=== PATIENT | male | born 1935 | race Caucasian/White ===

== ENCOUNTER → 2018-03-26 | Outpatient (CLI) | payer OTHER | LOC: FIMAGING 15:25 | PROVIDERS: ATTEND Internal Medicine Rheumatology | DX: M25.552 Pain in left hip (principal) ==

== ENCOUNTER → 2018-06-19 | Outpatient (CLI) | payer OTHER | LOC: FIMAGING 11:25 | PROVIDERS: ATTEND Internal Medicine | DX: Z01.818 Encounter for other preprocedural examination (principal); M51.36 Other intervertebral disc degeneration, lumbar region; M43.16 Spondylolisthesis, lumbar region ==

== ENCOUNTER 2018-08-06 05:40 | Observation (INO) | payer OTHER ==
--- NOTE | 2018-08-05 17:23 | GHP ---
ADMISSION DIAGNOSIS: Benign prostatic hyperplasia with urinary obstruction. This is an 83-year-old gentleman who was referred by Dr. Martino because of urologic evaluation of urinary retention. He has had an AUA score that reveals a quality of life of 5, which is terrible. He has nocturia 3 times per night. He has had recent back surgery and postop urinary retention, and he has had failure of voiding trials. At the present time, with the evaluation and assessment, would recommend a TURP. REVIEW OF SYSTEMS: Negative cardiac, respiratory, GI, and endocrine. PHYSICAL EXAMINATION: VITAL SIGNS: Stable. CHEST: Clear. HEART: Regular rate and rhythm. ABDOMEN: Normal. No organomegaly, rebound, or guarding. LOWER EXTREMITIES: Normal. DIAGNOSTICS: At the present time, he has had a cystoscopy that reveals +4 trabeculation and significant BPH and he is to undergo a transurethral resection of the prostate. Indications, complications, and options have been discussed. Written and verbal consent have been obtained and he will be admitted for the above procedure. /[id number]/MODL MTDD
[2018-08-06] MEDS ORDERED: LR 1,000 ML IV ONE (05:49)
[2018-08-06] MEDS ORDERED: LIDOCAINE 1% 2 ML INJ ID PRN (05:49)
[2018-08-06] MEDS ORDERED: ceFAZolin 2 GM/DEXTROSE 100 ML IV ONE (05:49)
--- NOTE | 2018-08-06 06:49 | PDANEPAE ---
ANE History of Present Illness Cysto TURP ANE Past Medical History - Cardiovascular History Hx Hypertension: Yes Hx Arrhythmias: No Hx Chest Pain: No Hx Coronary Artery / Peripheral Vascular Disease: No Hx CHF / Valvular Disease: No Hx Palpitations: No - Pulmonary History Hx COPD: No Hx Asthma/Reactive Airway Disease: No Hx Recent Upper Respiratory Infection: No Hx Oxygen in Use at Home: No Hx Sleep Apnea: No Sleep Apnea Screening Result - Last Documented: Positive Pulmonary History Comment: CHILDHOOD ASTHMA - Neurologic History Hx Cerebrovascular Accident: Yes Hx Seizures: No Hx Dementia: No Neurologic History Comment: 2015 WITHOUT RESIDUAL ISSUES - Endocrine History Hx Diabetes: No - Renal History Hx Renal Disorders: Yes Renal History Comment: UTI 06/2018. HAS CATHETER IN PLACE. RENAL INSUFFICIENCY - Liver History Hx Hepatic Disorders: No - Neurological & Psychiatric Hx Hx Neurological and Psychiatric Disorders: No - Cancer History Hx Cancer: No - Congenital Disorder History Hx Congenital Disorders: No - GI History Hx Gastrointestinal Disorders: No - Other Health History Other Health History: RECENT LUMBAR LAMINECTOMY. PAMELA LOWER EXT EDEMA. ARTERITIS. INTERMITTENT VERTIGO. CONSTANT TINNITUS. ARTHRITIS - Chronic Pain History Chronic Pain: No - Surgical History Prior Surgeries: LUMBAR LAMINECTOMY 06/26/18 AT [facility]. PAMELA CATARACT. RT KNEE SCOPE. APPENDECTOMY. TONSILLECTOMY ANE Review of Systems Review of Systems: ANE Patient History - Allergies Allergies/Adverse Reactions: Sulfa (Sulfonamide Antibiotics) Allergy (Verified 07/30/18 15:54) Unknown AVACADO Allergy (Uncoded 07/30/18 15:54) GI UPSET - Home Medications Home Medications: Atorvastatin Calcium [Lipitor 10 mg (*)] 10 mg PO DAILY 11/23/15 [Last Taken ] Doxazosin Mesylate 2 mg PO DAILY 11/23/15 [Last Taken 07/05/18] Acetaminophen [Tylenol ES 500 mg (*)] 500 - 1,000 mg PO Q8HRS PRN 07/05/18 [ Last Taken 07/05/18 13:00] Alendronate Sodium [Fosamax 70 MG (*)] 70 mg PO SA@07 07/05/18 [Last Taken 07/04] Cholecalciferol Vit D3 [Vitamin D3 (*)] 1,000 units PO DAILY 07/05/18 [Last Taken Unknown] Furosemide [Lasix 20 MG (*)] 20 mg PO DAILY 07/05/18 [Last Taken 07/05/18] Losartan Potassium [Cozaar 50 mg (*)] 50 mg PO DAILY 07/05/18 [Last Taken ] Potassium Cl [Klor-Con 20 meq (*)] 20 meq PO DAILY 07/05/18 [Last Taken 07/05/18 ] Tamsulosin HCl [Flomax 0.4 MG (*)] 0.4 mg PO DAILY 07/05/18 [Last Taken Unknown] Preservision Areds 2 Softgel DAILY 07/30/18 [Last Taken Unknown] - NPO status NPO Since - Liquids (Date): 08/05/18 NPO Since - Liquids (Time): 21:00 NPO Since - Solids (Date): 08/05/18 NPO Since - Solids (Time): 20:00 - Smoking Hx Smoking Status: Never smoked ANE Labs/Vital Signs - Vital Signs Blood Pressure: 172/99 Heart Rate: 70 Respiratory Rate: 18 O2 Sat (%): 99 Height: 170.18 cm Weight: 73.482 kg ANE Physical Exam - Airway Neck exam: FROM Mallampati Score: Class 2 Mouth exam: normal dental/mouth exam - Pulmonary Pulmonary: clear to auscultation - Cardiovascular Cardiovascular: regular rate and rhythym - ASA Status ASA Status: II ANE Anesthesia Plan Anesthesia Plan: GA w LMA
[2018-08-06] MEDS ORDERED: ACETAMINOPHEN 500 MG TAB PO PRN (06:50)
[2018-08-06] MEDS ORDERED: ALBUTEROL 3 ML DEYVIAL IH PRN (06:50)
[2018-08-06] MEDS ORDERED: ONDANSETRON 4 MG/2 ML VIAL IVP PRN ×2 (06:50→08:27)
[2018-08-06] MEDS ORDERED: DEXAMETHASONE 4 MG/ML VIAL IVP PRN (06:50)
[2018-08-06] MEDS ORDERED: MIDAZOLAM 2 MG/2 ML VIAL IVP ONE (06:50)
[2018-08-06] MEDS ORDERED: fentaNYL 100 MCG/2 ML INJ IVP PRN (06:50)
[2018-08-06] MEDS ORDERED: NALOXONE HCL 0.4 MG/ML INJ IVP PRN (06:50)
[2018-08-06] MEDS ORDERED: SCOPOLAMINE HYDROBROMIDE 1 MG/3 DAYS PATCH TD ONE (06:55)
[2018-08-06] MEDS ORDERED: ONDANSETRON 4 MG/2 ML VIAL ONE (06:58)
[2018-08-06] MEDS ORDERED: PROPOFOL 200 MG/20 ML VIAL ONE (06:58)
[2018-08-06] MEDS ORDERED: LIDOCAINE 2% 2 ML INJ ONE (06:58)
[2018-08-06] MEDS ORDERED: DEXAMETHASONE 4 MG/ML VIAL ONE (06:58)
[2018-08-06] MEDS ORDERED: fentaNYL 100 MCG/2 ML INJ ONE (07:00)
--- NOTE | 2018-08-06 07:01 | PDHPUP ---
History & Physical Update H&P update statement: This history and physical update is based on an assessment of the patient which was completed after admission or registration (within 24 hours), but prior to the surgery/procedure. H&P update: H&P reviewed & patient examined, no change in patient's condition since H&P completed
[2018-08-06] MEDS ORDERED: LIDOCAINE 2% JELLY 20 ML (UROJECT) ONE (07:20)
[2018-08-06] MEDS ORDERED: ONDANSETRON DISINTEGRATING 4 MG TAB PO PRN (08:27)
[2018-08-06] MEDS ORDERED: HYDROCODONE/APAP 5/325 TAB PO PRN (08:27)
[2018-08-06] MEDS ORDERED: OPIUM/BELLADONNA ALKALO SUPP PR PRN (08:27)
--- NOTE | 2018-08-06 08:27 | POSTOPPROG ---
Post Op Note Date of Operation: 08/06/18 (dictated) Surgeon: Devonte Hutchison Anesthesia: LMA Pre-op Diagnosis: bph/retention Procedure: turp Inf/Abcess present in the surg proc area at time of surgery?: No EBL: Minimal Drains: Other (juarez, 70 cc balloon) Specimen(s): sent
--- NOTE | 2018-08-06 08:29 | POSTANESTH ---
Post Anesthetic Evaluation Cardiovascular Status: Normal, Stable Respiratory Status: Normal, Stable Level of Consciousness/Mental Status: Can Participate in Eval, Mildly Sleepy, Arousable Pain Control: Adequate, Prn Tx Ordered Nausea/Vomiting Control: Adequate, Prn Tx Ordered Complications Possibly Related to Anesthesia: None Noted
[2018-08-06] MEDS ORDERED: D5W 1/2 NS 1,000 ML IV SCH (08:30)
[2018-08-06] MEDS ORDERED: ACETAMINOPHEN 500 MG TAB ONE (08:48)
--- NOTE | 2018-08-06 08:51 | GOP ---
DATE OF OPERATION: SURGEON: Devonte Hutchison MD PREOPERATIVE DIAGNOSIS: BPH with urinary retention. POSTOPERATIVE DIAGNOSIS: BPH with urinary retention. PROCEDURE PERFORMED: Transurethral resection of the prostate. FINDINGS: DESCRIPTION OF PROCEDURE: After appropriate general anesthesia, being prepped and draped in normal s terile fashion in dorsal lithotomy position, appropriate time-out, the scope was passed into his blad dar. He had no tumors in the bladder and he had an intravesical lobe with lateral lobar hypertrophy and a TUR with bipolar instrumentation was utilized. Resected the right lateral lobe, right portion of the posterior lobe, the intravesical lobe, left intravesical lobe, lateral lobe, and posterior lob e are resected in a similar fashion. At the end the procedure, bladder was Ellik'd free of all chips and clots. Verumontanum preserved. External sphincter approximated at the midline symmetrically. Ureteral orifices preserved. There was no trauma or problems with the bladder. Uro-jet placed in ur ethra. A 22 three-way catheter passed in the bladder. 70 cc balloon inflated, traction placed, and irrigated clear. Specimen sent for pathology. No complications. I have contacted his son at [phone] to report to him postoperatively. /[id number]/MODL
--- NOTE | 2018-08-06 09:48 | ASMTCMCOM ---
CM Note CM Note Notes: Chart reviewed for discharge planning purposes. Patient is an 83 year old male s/p TURP. CM to follow for needs as plan of care unclear at this time. Plan: TBD Date Signed: 08/06/2018 09:47 AM Electronically Signed By:Gem Silveira RN
[2018-08-06] MEDS: ACETAMINOPHEN 325 MG TAB PO PRN ×2 (11:41→16:06)
[2018-08-06] MEDS: ATORVASTATIN CALCIUM 10 MG TAB PO SCH (14:21)
[2018-08-06] MEDS: LOSARTAN POTASSIUM 50 MG TAB PO SCH (14:26)
[2018-08-06] MEDS: FUROSEMIDE 20 MG TAB PO SCH (14:26)
[2018-08-06] MEDS: POTASSIUM CL 20 MEQ TAB PO SCH (14:27)
[2018-08-07] MEDS: ACETAMINOPHEN 325 MG TAB PO PRN ×2 (01:56→09:57)
--- NOTE | 2018-08-07 08:20 | SOAPPROG ---
SOAP Progress Note Assessment/Plan: Assessment: Urinary retention due to benign prostatic hyperplasia Acute POD # 1 TURP, remove juarez and if pt voids DC with out cath, if can not void replace juarez and consider DC with catheter Plan: as noted 08/07/18 08:19 Subjective: doing well , pain mild Objective: Vital Signs Temp Pulse Resp BP Pulse Ox 36.6 C 64 16 108/76 95 08/07/18 03:09 08/07/18 03:09 08/07/18 03:09 08/07/18 03:09 08/07/18 03:09 08/06/18 08/07/18 08/08/18 05:59 05:59 05:59 Intake Total 3188 Output Total 5295 Balance -2107 Physical Exam - Physical Exam General Appearance: alert Neck: supple Respiratory: No respiratory distress Cardiac/Chest: regular rate, rhythm Abdomen: soft Neuro/Psych: alert, oriented x 3 ICD10 Worksheet Patient Problems: Problems Problem Status Onset Urinary retention due to benign prostatic hyperplasia Acute Abdominal pain Acute Hypertension Acute Hypokalemia Acute Low back pain Acute MRSA (methicillin resistant Staphylococcus aureus) Acute ~04/15/17 Stroke determined by clinical assessment Acute Urinary tract infection Acute - ICD10 Problem Qualifiers (1) Urinary retention due to benign prostatic hyperplasia
[2018-08-07] MEDS: POTASSIUM CL 20 MEQ TAB PO SCH (08:27)
[2018-08-07] MEDS: ATORVASTATIN CALCIUM 10 MG TAB PO SCH (08:27)
[2018-08-07] MEDS: LOSARTAN POTASSIUM 50 MG TAB PO SCH (08:27)
[2018-08-07] MEDS: FUROSEMIDE 20 MG TAB PO SCH (08:28)
--- NOTE | 2018-08-07 10:54 | ASMTCMCOM ---
CM Note CM Note Notes: Chart reviewed for discharge planning purposes, Patient is a 83 year old male s/p TURP with [facility]. Brannon to be dcd this am and if patient able to void may dc to home . NO needs identiifed at this time. CM available should needs arise. Plan: DC to home when medically cleared. Date Signed: 08/07/2018 10:53 AM Electronically Signed By:Gem Silveira RN
[2018-08-07] MEDS ORDERED: PNEUMOC 13-VAL CONJ-DIP CRM/PF 0.5 ML SYR IM ONE (14:25)
--- NOTE | 2018-08-07 15:07 | ASDISCHSUM ---
Discharge Information Plan Status:Home with No Needs Medically Cleared to Leave:08/07/2018 Discharge Date:08/07/2018 CM D/C Disposition:Home, Routine, Self-Care ADT D/C Disposition:Home, Routine, Self-Care Projected Discharge Date:08/07/2018 Transportation at D/C:Family Discharge Delay Reason: Follow-Up Date:08/07/2018 Discharge Slot: Final Diagnosis: Placement Information Patient Contact Information Contact Name:CYNTHIA Relationship:Jeovanny Address: Work Phone: City: [facility] Phone: State/Zip Code: Email: Financial Information Financial Class:Medicare Advantage Plans Primary Plan Desc:[facility] [employer] PLANS Primary Plan Number:[id number] Secondary Plan Desc: Secondary Plan Number: Assessment Information [facility] CM Progress Note CM Note CM Note Notes: Chart reviewed for discharge planning purposes. Patient is an 83 year old male s/p MARTÍN. CM to follow for needs as plan of care unclear at this time. Plan: TBD Date Signed: 08/06/2018 09:47 AM Electronically Signed By:Gem Silveira RN LACE LACE Length of stay for Answers: 1 day current admission Acuity / Level of Answers: No Care: Did the patient have an inpatient admission? Comorbidities - select Answers: Cerebrovascular disease all that apply (CVA, TIA, aneurysms, vasc ular dementia) Other Notes: HTN, BPH # of Emergency department Answers: 0 visits in the last 6 months Score: 3 Date Signed: 08/07/2018 03:04 PM Electronically Signed By:JJ Watson [facility] CM Progress Note CM Note CM Note Notes: Chart reviewed for discharge planning purposes, Patient is a 83 year old male s/p TURP with [facility]. Brannon to be dcd this am and if patient able to void may dc to home . NO needs identiifed at this time. CM available should needs arise. Plan: DC to home when medically cleared. Date Signed: 08/07/2018 10:53 AM Electronically Signed By:Gem Silveira RN Intervention Information
--- NOTE | 2018-08-07 15:10 | ASMTDCNOTE ---
Case Management Discharge Discharge Order Complete? Answers: Yes Patient to Obtain Answers: Independently Medications Transportation Arranged Answers: Family/Friends Discharge Comments Notes: Pt is s/p TURP. He is discharging home today with no CM needs. Date Signed: 08/07/2018 03:07 PM Electronically Signed By:JJ Watson
[2018-08-07 16:16] VITALS: BP 132/76
--- NOTE | 2018-08-07 16:20 | GDS ---
PREOPERATIVE DIAGNOSIS: BPH. POSTOPERATIVE DIAGNOSIS: BPH. HOSPITAL COURSE: After a full discussion of options, patient elected to undergo a transurethral rese ction of the prostate. He did this with Dr. Hutchison without difficulty. He is being discharged home. If patient is unable to void, he will be discharged home with his catheter and follow up with our celeste oliveira on Friday or Friday for catheter removal. Otherwise, see us in 3 weeks for followup. /[id number]/MODL
== END 2018-08-07 18:14 | disposition home or self-care (01) ==
LOC: INTOOBSV 05:40 → F1N 05:40
PROVIDERS: ADMIT Specialist; ATTEND Specialist
PROC: 0VT08ZZ Resection of Prostate, Via Natural or Artificial Opening Endoscopic (ICD-10-PCS; principal; 2018-08-06 07:15)
DX: N40.1 Benign prostatic hyperplasia with lower urinary tract symptoms (principal); R33.9 Retention of urine, unspecified; Z23 Encounter for immunization
CPT/HCPCS: 52601; 90670; 90686; G0008; J1100; J2250; J2405; J2704; J3010; J0690

== ENCOUNTER → 2019-03-19 | Outpatient (CLI) | payer OTHER | LOC: FIMAGING 11:04 | PROVIDERS: ATTEND Internal Medicine Rheumatology | DX: Z13.820 Encounter for screening for osteoporosis (principal); M81.0 Age-related osteoporosis without current pathological fracture; Z79.83 Long term (current) use of bisphosphonates ==